=== PATIENT | male | born 1985 | race Two or more races ===

== ENCOUNTER 2021-06-26 18:02 | Inpatient (IN) | payer OTHER, SELFPAY ==
[~2021-06-26] VITALS: Ht 172.7 cm; Wt 91.8 kg
[2021-06-26] MEDS ORDERED: CHOLECALCIFEROL (VITD3) 2,000 UNIT CAP/TAB PO ONE (20:00)
[2021-06-26] MEDS ORDERED: ASCORBIC ACID 500 MG TAB PO ONE (20:00)
[2021-06-26] MEDS ORDERED: AZITHROMYCIN 500MG/ 250ML 250 ML IV ONE (20:00)
[2021-06-26] MEDS ORDERED: ZINC SULFATE 220mg CAP or TAB PO ONE (20:00)
[2021-06-26] MEDS ORDERED: methylPREDNISolone SOD SUCC 125 MG/2 ML VL IV ONE (20:00)
[2021-06-26 20:22] LABS: Albumin 3.6 g/dL (3.4-5.0); BUN/Creatinine Ratio 7.5; Calcium 8.8 mg/dL (8.5-10.1); Potassium 3.1 mmol/L (3.5-5.1)
[2021-06-26 20:25] LABS: Bilirubin, Total 0.7 mg/dL (0.2-1.0)
[2021-06-26 20:30] LABS: Basophils # (auto) 0 10 ^3/uL (0-0.2); Basophils % (auto) 0.2 % (0.0-2.0); Eosinophils # (auto) 0 10 ^3/uL (0-0.8); Eosinophils % (auto) 0.1 % (0.0-7.0); Hematocrit 42.6 % (41.0-53.0); Hemoglobin 15.2 g/dL (13.5-17.5); Lymphocytes # (auto) 0.4 10 ^3/uL (0.4-5.4); Lymphocytes % (auto) 7.4 % (10.0-50.0); Mean Corpuscular Hemoglobin 30.3 pg (28.0-32.0); Mean Corpuscular Hgb Conc. 35.7 g/dL (32.0-36.0); Mean Corpuscular Volume 84.9 fL (80.0-100.0); Monocytes # (auto) 0.2 10 ^3/uL (0-1.3); Monocytes % (auto) 4.6 % (0.0-12.0); Neutrophils # (auto) 4.5 10 ^3/uL (1.6-8.6); Neutrophils % (auto) 87.7 % (37.0-80.0); Nucleated Red Blood Cells % 0.1 %; Red Blood Cells 5.02 10^6/uL (4.5-5.90); Red Cell Distribution Width 13.1 % (11.8-14.3); White Blood Cell 5.1 10^3/uL (4.4-10.8)
[2021-06-26] MEDS ORDERED: POTASSIUM CHL 20 Meq TABLET PO ONE (21:00)
[2021-06-26] MEDS ORDERED: REMDESIVIR PER PHARMACY 0 ML IV SCH (22:00)
[2021-06-26] MEDS ORDERED: ACETAMINOPHEN 500 MG TAB PO PRN (23:00)
[2021-06-26] MEDS ORDERED: MORPHINE SULFATE INJECTION 2 MG/ML SYRG IV PRN (23:00)
[2021-06-26] MEDS ORDERED: SODIUM CHLORIDE 0.9% 1,000 ML IV SCH (23:00)
[2021-06-26] MEDS ORDERED: NITROGLYCERIN 0.4 MG SL TAB SL PRN (23:00)
[2021-06-26] MEDS ORDERED: ONDANSETRON HCL 4 MG/2 ML VIAL IV PRN (23:00)
[2021-06-27] VITALS (10 sets, daily range): BP systolic 110–129; BP diastolic 60–76
[2021-06-27 00:51] LABS: Urine Bacteria FEW /hpf (None Seen); Urine Blood 1+ /uL (Negative); Urine Mucus FEW (None Seen); Urine Specific Gravity 1.013 (1.001-1.035); Urine WBC 5 /hpf (0 - 3)
[2021-06-27 06:52] LABS: Basophils # (auto) 0 10 ^3/uL (0-0.2); Eosinophils # (auto) 0 10 ^3/uL (0-0.8); Hematocrit 41.9 % (41.0-53.0); Hemoglobin 14.9 g/dL (13.5-17.5); Lymphocytes # (auto) 0.4 10 ^3/uL (0.4-5.4); Lymphocytes % (auto) 8.2 % (10.0-50.0); Mean Corpuscular Hemoglobin 30.5 pg (28.0-32.0); Mean Corpuscular Hgb Conc. 35.5 g/dL (32.0-36.0); Monocytes # (auto) 0.1 10 ^3/uL (0-1.3); Monocytes % (auto) 1.9 % (0.0-12.0); Neutrophils # (auto) 4.2 10 ^3/uL (1.6-8.6); Neutrophils % (auto) 89.9 % (37.0-80.0); Nucleated Red Blood Cells % 0.1 %; Red Blood Cells 4.87 10^6/uL (4.5-5.90); Red Cell Distribution Width 13.5 % (11.8-14.3); White Blood Cell 4.7 10^3/uL (4.4-10.8)
[2021-06-27 07:12] LABS: Albumin 3.3 g/dL (3.4-5.0); Calcium 8.3 mg/dL (8.5-10.1); Potassium 3.4 mmol/L (3.5-5.1)
[2021-06-27] MEDS: ALBUTEROL SULF HFA 90MCG INH 200DOSE IN PRN ×2 (07:14→21:54)
[2021-06-27] MEDS: BUDESONIDE (INHALATION) 180 MCG IH IN SCH ×2 (07:14→21:54)
[2021-06-27 07:15] LABS: BUN/Creatinine Ratio 9.3; Bilirubin, Total 0.4 mg/dL (0.2-1.0); Total Protein 7.7 g/dL (6.4-8.2)
[2021-06-27] MEDS: DexAMETHasone SOD PHOS 10MG/1ML VIAL INJ IV SCH (09:53)
[2021-06-27] MEDS: ZINC SULFATE 220mg CAP or TAB PO SCH (09:54)
[2021-06-27] MEDS: FAMOTIDINE (10MG/ML) 2ML VL IV SCH ×2 (09:54→21:45)
[2021-06-27] MEDS: MULTIPLE VITAMIN TAB PO SCH (09:54)
[2021-06-27] MEDS: ASCORBIC ACID 1,000 MG TAB PO SCH (09:54)
[2021-06-27] MEDS: CHOLECALCIFEROL (VITD3) 2,000 UNIT CAP/TAB PO SCH (09:55)
[2021-06-27] MEDS ORDERED: ENOXAPARIN SOD 40 MG/0.4 ML SYRINGE SC SCH (10:00)
[2021-06-27] MEDS: DOXYCYCLINE 100MG/250ML 250 ML IV SCH ×2 (11:50→23:45)
[2021-06-27] MEDS ORDERED: REMDESIVIR PER PHARMACY 0 ML IV SCH ×2 (12:45→16:15)
[2021-06-27] MEDS ORDERED: FUROSEMIDE 20 MG/2 ML VIAL IV ONE (16:30)
[2021-06-27] MEDS ORDERED: ALBUMIN 25% 100 ML IV ONE (16:30)
[2021-06-27] MEDS: IVERMECTIN 3 MG TAB PO SCH (17:10)
[2021-06-27] MEDS: HYDROcodone-ACET 5/325MG TAB PO PRN ×2 (17:13→21:47)
[2021-06-27] MEDS ORDERED: POTASSIUM CHL 20 Meq TABLET PO ONE (17:30)
[2021-06-27] MEDS ORDERED: REMDESIVIR 200 MG in NS 210ml LOADING DOSE ADULT IV ONE (17:30)
[2021-06-27] MEDS: ATORVASTATIN 20 MG TAB PO SCH (21:45)
[2021-06-27] MEDS: POTASSIUM CHL 20 Meq TABLET PO SCH (21:45)
[2021-06-27] MEDS: ENOXAPARIN SOD 40 MG/0.4 ML SYRINGE SC SCH (21:46)
[2021-06-27] MEDS ORDERED: AZITHROMYCIN 500MG/ 250ML 250 ML IV SCH (22:00)
[2021-06-28 05:00] VITALS: BP 116/69
[2021-06-28] MEDS: FUROSEMIDE 20 MG/2 ML VIAL IV SCH ×2 (06:04→17:29)
[2021-06-28] MEDS: HYDROcodone-ACET 5/325MG TAB PO PRN (06:04)
[2021-06-28 07:06] LABS: Basophils # (auto) 0 10 ^3/uL (0-0.2); Basophils % (auto) 0.1 % (0.0-2.0); Eosinophils # (auto) 0 10 ^3/uL (0-0.8); Hematocrit 40.3 % (41.0-53.0); Hemoglobin 14.5 g/dL (13.5-17.5); Lymphocytes # (auto) 0.7 10 ^3/uL (0.4-5.4); Lymphocytes % (auto) 6.3 % (10.0-50.0); Mean Corpuscular Hemoglobin 31.2 pg (28.0-32.0); Mean Corpuscular Volume 86.6 fL (80.0-100.0); Monocytes # (auto) 0.3 10 ^3/uL (0-1.3); Monocytes % (auto) 3.1 % (0.0-12.0); Neutrophils # (auto) 9.7 10 ^3/uL (1.6-8.6); Neutrophils % (auto) 90.5 % (37.0-80.0); Red Blood Cells 4.65 10^6/uL (4.5-5.90); Red Cell Distribution Width 13.5 % (11.8-14.3); White Blood Cell 10.7 10^3/uL (4.4-10.8)
[2021-06-28] MEDS: ALBUTEROL SULF HFA 90MCG INH 200DOSE IN PRN (07:11)
[2021-06-28] MEDS: BUDESONIDE (INHALATION) 180 MCG IH IN SCH ×2 (07:11→21:11)
[2021-06-28 07:24] LABS: Potassium 3.7 mmol/L (3.5-5.1)
[2021-06-28 07:27] LABS: INR 0.97 (0.9-1.15); Partial Thromboplastin Time 36.7 sec (23.6-33.0)
[2021-06-28 07:39] LABS: Albumin 3.1 g/dL (3.4-5.0); BUN/Creatinine Ratio 18.4; Bilirubin, Total 0.5 mg/dL (0.2-1.0); Calcium 8.1 mg/dL (8.5-10.1); Magnesium 2.7 mg/dL (1.6-2.6); Phosphorus 3.2 mg/dL (2.5-4.90); Total Protein 7.3 g/dL (6.4-8.2)
[2021-06-28 08:00] VITALS: BP 116/70
[2021-06-28 09:00] VITALS: BP 110/71
[2021-06-28] MEDS: DexAMETHasone SOD PHOS 10MG/1ML VIAL INJ IV SCH (09:31)
[2021-06-28] MEDS: ZINC SULFATE 220mg CAP or TAB PO SCH (09:32)
[2021-06-28] MEDS: POTASSIUM CHL 20 Meq TABLET PO SCH ×2 (09:32→22:25)
[2021-06-28] MEDS: MULTIPLE VITAMIN TAB PO SCH (09:32)
[2021-06-28] MEDS: ASPirin 81 mg TAB PO SCH (09:32)
[2021-06-28] MEDS: FAMOTIDINE (10MG/ML) 2ML VL IV SCH ×2 (09:32→22:24)
[2021-06-28] MEDS: ASCORBIC ACID 1,000 MG TAB PO SCH (09:33)
[2021-06-28] MEDS: IVERMECTIN 3 MG TAB PO SCH (09:33)
[2021-06-28] MEDS: CHOLECALCIFEROL (VITD3) 2,000 UNIT CAP/TAB PO SCH (09:33)
[2021-06-28] MEDS: ENOXAPARIN SOD 40 MG/0.4 ML SYRINGE SC SCH ×2 (09:33→22:26)
[2021-06-28] MEDS: DOXYCYCLINE 100MG/250ML 250 ML IV SCH ×2 (10:39→23:15)
[2021-06-28] MEDS ORDERED: LORazepam 0.5 MG TAB PO PRN (12:30)
[2021-06-28 13:00] VITALS: BP 116/67
[2021-06-28] MEDS: REMDESIVIR 100mg 100 MG in SODIUM CHL 0.9% 230 ML IV SCH (14:55)
[2021-06-28 17:01] VITALS: BP 117/71
[2021-06-28 22:00] VITALS: BP 109/68
[2021-06-28] MEDS: ATORVASTATIN 20 MG TAB PO SCH (22:25)
[2021-06-29 04:44] VITALS: BP 110/73
[2021-06-29] MEDS: BUDESONIDE (INHALATION) 180 MCG IH IN SCH ×2 (06:04→19:52)
[2021-06-29] MEDS: ALBUTEROL SULF HFA 90MCG INH 200DOSE IN PRN ×2 (06:04→19:52)
[2021-06-29] MEDS: FUROSEMIDE 20 MG/2 ML VIAL IV SCH (06:14)
[2021-06-29 06:47] LABS: Basophils # (auto) 0 10 ^3/uL (0-0.2); Basophils % (auto) 0.1 % (0.0-2.0); Eosinophils # (auto) 0 10 ^3/uL (0-0.8); Hematocrit 41.1 % (41.0-53.0); Hemoglobin 14.8 g/dL (13.5-17.5); Lymphocytes # (auto) 0.7 10 ^3/uL (0.4-5.4); Lymphocytes % (auto) 10.8 % (10.0-50.0); Mean Corpuscular Hemoglobin 31.1 pg (28.0-32.0); Mean Corpuscular Volume 86.3 fL (80.0-100.0); Monocytes # (auto) 0.5 10 ^3/uL (0-1.3); Monocytes % (auto) 7.6 % (0.0-12.0); Neutrophils # (auto) 5.2 10 ^3/uL (1.6-8.6); Neutrophils % (auto) 81.5 % (37.0-80.0); Nucleated Red Blood Cells % 0.1 %; Red Blood Cells 4.76 10^6/uL (4.5-5.90); Red Cell Distribution Width 13.5 % (11.8-14.3); White Blood Cell 6.3 10^3/uL (4.4-10.8)
[2021-06-29 06:53] LABS: INR 1.04 (0.9-1.15); Partial Thromboplastin Time 34.3 sec (23.6-33.0)
[2021-06-29 07:10] LABS: Potassium 3.8 mmol/L (3.5-5.1)
[2021-06-29 07:17] LABS: BUN/Creatinine Ratio 19.8; Bilirubin, Total 0.5 mg/dL (0.2-1.0); Calcium 8.4 mg/dL (8.5-10.1); Magnesium 2.9 mg/dL (1.6-2.6); Phosphorus 3.4 mg/dL (2.5-4.90); Total Protein 7.2 g/dL (6.4-8.2)
[2021-06-29] MEDS: ENOXAPARIN SOD 40 MG/0.4 ML SYRINGE SC SCH ×3 (10:00→22:27)
[2021-06-29] MEDS: ZINC SULFATE 220mg CAP or TAB PO SCH (10:10)
[2021-06-29] MEDS: MULTIPLE VITAMIN TAB PO SCH (10:10)
[2021-06-29] MEDS: POTASSIUM CHL 20 Meq TABLET PO SCH ×2 (10:10→22:26)
[2021-06-29] MEDS: DexAMETHasone SOD PHOS 10MG/1ML VIAL INJ IV SCH (10:10)
[2021-06-29] MEDS: ASPirin 81 mg TAB PO SCH (10:10)
[2021-06-29] MEDS: FAMOTIDINE (10MG/ML) 2ML VL IV SCH ×2 (10:10→22:27)
[2021-06-29] MEDS: ASCORBIC ACID 1,000 MG TAB PO SCH (10:11)
[2021-06-29] MEDS: IVERMECTIN 3 MG TAB PO SCH (10:11)
[2021-06-29] MEDS: CHOLECALCIFEROL (VITD3) 2,000 UNIT CAP/TAB PO SCH (10:11)
[2021-06-29] MEDS: DOXYCYCLINE 100MG/250ML 250 ML IV SCH ×2 (10:12→22:38)
[2021-06-29 13:00] VITALS: BP 108/68
[2021-06-29] MEDS: REMDESIVIR 100mg 100 MG in SODIUM CHL 0.9% 230 ML IV SCH (16:24)
[2021-06-29 22:00] VITALS: BP 96/54
[2021-06-29] MEDS: ATORVASTATIN 20 MG TAB PO SCH (22:27)
[2021-06-30 03:35] VITALS: BP 96/54
[2021-06-30 05:26] VITALS: BP 106/63
[2021-06-30 06:20] LABS: Basophils # (auto) 0 10 ^3/uL (0-0.2); Basophils % (auto) 0.2 % (0.0-2.0); Eosinophils # (auto) 0 10 ^3/uL (0-0.8); Hematocrit 43.6 % (41.0-53.0); Hemoglobin 15.4 g/dL (13.5-17.5); Lymphocytes % (auto) 20.1 % (10.0-50.0); Mean Corpuscular Hemoglobin 30.1 pg (28.0-32.0); Mean Corpuscular Hgb Conc. 35.3 g/dL (32.0-36.0); Mean Corpuscular Volume 85.2 fL (80.0-100.0); Monocytes # (auto) 0.6 10 ^3/uL (0-1.3); Monocytes % (auto) 12.6 % (0.0-12.0); Neutrophils # (auto) 3.2 10 ^3/uL (1.6-8.6); Neutrophils % (auto) 67.1 % (37.0-80.0); Nucleated Red Blood Cells % 0.3 %; Red Blood Cells 5.12 10^6/uL (4.5-5.90); Red Cell Distribution Width 13.3 % (11.8-14.3); White Blood Cell 4.8 10^3/uL (4.4-10.8)
[2021-06-30] MEDS: BUDESONIDE (INHALATION) 180 MCG IH IN SCH ×2 (06:26→21:30)
[2021-06-30] MEDS: ALBUTEROL SULF HFA 90MCG INH 200DOSE IN PRN ×2 (06:27→21:30)
[2021-06-30 06:32] LABS: Potassium 3.7 mmol/L (3.5-5.1)
[2021-06-30 06:40] LABS: Albumin 3.1 g/dL (3.4-5.0); BUN/Creatinine Ratio 21.1; Bilirubin, Total 0.6 mg/dL (0.2-1.0); Calcium 8.4 mg/dL (8.5-10.1); Total Protein 7.4 g/dL (6.4-8.2)
[2021-06-30 09:00] VITALS: BP 106/69
[2021-06-30] MEDS: DexAMETHasone SOD PHOS 10MG/1ML VIAL INJ IV SCH (10:58)
[2021-06-30] MEDS: FUROSEMIDE 20 MG/2 ML VIAL IV SCH (10:59)
[2021-06-30] MEDS: FAMOTIDINE (10MG/ML) 2ML VL IV SCH ×2 (10:59→20:57)
[2021-06-30] MEDS: ASPirin 81 mg TAB PO SCH (10:59)
[2021-06-30] MEDS: POTASSIUM CHL 20 Meq TABLET PO SCH ×2 (11:00→20:57)
[2021-06-30] MEDS: ASCORBIC ACID 1,000 MG TAB PO SCH (11:00)
[2021-06-30] MEDS: ZINC SULFATE 220mg CAP or TAB PO SCH (11:00)
[2021-06-30] MEDS: MULTIPLE VITAMIN TAB PO SCH (11:00)
[2021-06-30] MEDS: CHOLECALCIFEROL (VITD3) 2,000 UNIT CAP/TAB PO SCH (11:01)
[2021-06-30] MEDS: ENOXAPARIN SOD 40 MG/0.4 ML SYRINGE SC SCH ×2 (11:01→20:59)
[2021-06-30] MEDS: DOXYCYCLINE 100MG/250ML 250 ML IV SCH ×2 (11:09→22:23)
[2021-06-30 13:00] VITALS: BP 106/69
[2021-06-30] MEDS: REMDESIVIR 100mg 100 MG in SODIUM CHL 0.9% 230 ML IV SCH (16:30)
[2021-06-30] MEDS: ATORVASTATIN 20 MG TAB PO SCH (20:57)
[2021-06-30 22:00] VITALS: BP 119/66
[2021-07-01 05:00] VITALS: BP 108/73
[2021-07-01] MEDS: ALBUTEROL SULF HFA 90MCG INH 200DOSE IN PRN (07:10)
[2021-07-01] MEDS: BUDESONIDE (INHALATION) 180 MCG IH IN SCH (07:12)
[2021-07-01] MEDS ORDERED: REMDESIVIR 100mg 100 MG in SODIUM CHL 0.9% 230 ML IV SCH (08:00)
[2021-07-01 09:00] VITALS: BP 110/69
[2021-07-01] MEDS: FAMOTIDINE (10MG/ML) 2ML VL IV SCH (09:46)
[2021-07-01] MEDS: ZINC SULFATE 220mg CAP or TAB PO SCH (09:46)
[2021-07-01] MEDS: ASPirin 81 mg TAB PO SCH (09:46)
[2021-07-01] MEDS: MULTIPLE VITAMIN TAB PO SCH (09:47)
[2021-07-01] MEDS: ASCORBIC ACID 1,000 MG TAB PO SCH (09:47)
[2021-07-01] MEDS: POTASSIUM CHL 20 Meq TABLET PO SCH (09:47)
[2021-07-01] MEDS: ENOXAPARIN SOD 40 MG/0.4 ML SYRINGE SC SCH (09:48)
[2021-07-01] MEDS: CHOLECALCIFEROL (VITD3) 2,000 UNIT CAP/TAB PO SCH (09:48)
[2021-07-01] MEDS: DOXYCYCLINE 100MG/250ML 250 ML IV SCH (11:15)
[2021-07-01] MEDS: FUROSEMIDE 20 MG/2 ML VIAL IV SCH (11:40)
[2021-07-01] MEDS: DexAMETHasone SOD PHOS 10MG/1ML VIAL INJ IV SCH (11:40)
[2021-07-01 12:24] VITALS: BP 110/69
[2021-07-01 13:00] VITALS: BP 107/67
== END 2021-07-01 14:57 | disposition home or self-care (01) | DRG 177 ==
LOC: ER 18:05 → TELE 22:51 → TELE-EAST 23:46
PROVIDERS: ADMIT Nurse Practitioner Family; ATTEND Internal Medicine
PROC: XW033E5 Introduction of Remdesivir Anti-infective into Peripheral Vein, Percutaneous Approach, New Technology Group 5 (ICD-10-PCS; principal; 2021-06-26)
DX: U07.1 COVID-19 (principal); J96.01 Acute respiratory failure with hypoxia; J12.82 Pneumonia due to coronavirus disease 2019; E87.6 Hypokalemia; D89.839 Cytokine release syndrome, grade unspecified; E78.5 Hyperlipidemia, unspecified; E66.01 Morbid (severe) obesity due to excess calories; Z68.31 Body mass index [BMI] 31.0-31.9, adult
CPT/HCPCS: 36415; 71045; 80053; 81001; 82306; 82728; 83036; 83615; 83735; 83880; 84100; 84443; 85025; 85379; 85610; 85730; 86141; 87040; 87426; 93005; 94640; 96361; 96365; 96366; 96375; G0378; J1100; J2405; J3490; P9047